=== PATIENT | female | born 1990 | race Caucasian/White ===

== ENCOUNTER 2023-01-19 16:12 | Emergency (ER) | payer SELFPAY ==
[2023-01-19] MEDS ORDERED: Cephalexin 250 MG CAP ONE (16:41)
[2023-01-19] MEDS ORDERED: Sulfameth/Trimethoprim DS 800-160mg TAB ONE (16:41)
[2023-01-19] MEDS ORDERED: Boostrix 0.5 ML (Tdap) VIAL (>/=7 yrs of age) ONE (16:41)
== END 2023-01-19 16:57 | disposition home or self-care (01) ==
LOC: NAV ERS 16:12
DX: T81.40XA Infection following a procedure, unspecified, initial encounter (principal); F15.10 Other stimulant abuse, uncomplicated; Z23 Encounter for immunization
CPT/HCPCS: 90471; 90715